=== PATIENT | female | born 1960 | race Caucasian/White ===

== ENCOUNTER → 2017-10-18 13:08 | Outpatient (REF) | payer SELFPAY | LOC: OM 13:08 | PROVIDERS: Visit Provider Nurse Practitioner Family | DX: Z02.83 Encounter for blood-alcohol and blood-drug test (principal) ==

== ENCOUNTER 2020-09-03 11:09 | Outpatient (REF) | payer MEDICAID, SELFPAY ==
--- NOTE | 2020-09-03 10:00 | PAPFT_PTH ---
PATIENT: Erika Armendariz LOC: [facility] U#:[id number] AGE/SX: 60/F ROOM: RE09/03/[address]: HUANG Romano : 1960 BED: DIS: 09/03/2020 SPEC #: [id number] RECD: 09/03/20 12:42 STATUS: ADRIANNE REQ #: [id number] KATHIE: 09/03/20 10:[address]: Cordelia Ya [facility] Cytology RECD BY: Shakira Chavez ENTERED: 09/03/20 12:42 SP TYPE: PAPFT OTHR DR: Danna Reyes Tissues: 1 - CX/ENDOCX FOR PAP SMEARS Procedures: PAP THIN PREP/[facility] Screening HPV DNA PROBE Comments: [id number]
== END 2020-09-03 11:10 | disposition home or self-care (01) ==
LOC: LBN 11:09
PROVIDERS: Visit Provider Nurse Practitioner Family
DX: Z12.4 Encounter for screening for malignant neoplasm of cervix (principal); Z11.51 Encounter for screening for human papillomavirus (HPV)
CPT/HCPCS: 88142; 87624

== ENCOUNTER 2020-09-20 10:08 | Outpatient (REF) | payer MEDICAID, SELFPAY ==
[2020-09-20 15:33] LABS: Abs Immature Grans 0.06 10^3/uL (0.0-0.06); Absolute Basophil Count 0.05 10^3/uL (0.0-0.2); Absolute Lymphocyte Count 2.51 10^3/uL (1.2-3.4); Absolute Monocyte Count 0.55 10^3/uL (0.1-0.8); Absolute Neutrophil Count 3.88 10^3/uL (1.2-6.7); Basophils % 0.7; Eosinophils % 2.8; HCT 41.1 % (36.0-46.0); HGB 13.6 g/dL (11.2-15.7); Immature Grans % 0.8; Lymphocytes % 34.6; MCH 28.9 pg (27.0-33.0); MCHC 33.1 % (32.0-36.0); MCV 87.3 fL (80-95); MPV 11.1 fL (8.0-11.0); Monocytes % 7.6; Neutrophils % 53.5; Nucleated RBC 0 %; Platelet Count 305 10^3/uL (130-400); RBC 4.71 10^6/uL (3.93-5.22); RDW 12.9 % (11.7-14.6); RDW-SD 41.4 fL; WBC 7.25 10^3/uL (4.4-10.8)
[2020-09-20 15:50] LABS: ESR 15 mm/hr (0-30)
[2020-09-20 16:48] LABS: ALT 29 U/L (14-59); AST 15 U/L (15-37); Albumin 4.4 g/dL (3.4-5.0); Alkaline Phosphatase 88 U/L (46-116); Anion Gap 12.1 mmol/L (3-11); BUN 19 mg/dL (7-18); Bilirubin, Total 0.3 mg/dL (0.2-1.0); CO2 24.9 mmol/L (21.0-32.0); CREATININE 0.9 mg/dL (0.55-1.02); Calcium 9.7 mg/dL (8.5-10.1); Calculated LDL 137 mg/dL (<100); Chloride 105 mmol/L (98-107); Cholesterol 219 mg/dL (<200); Glucose 107 mg/dL (74-106); HDL Cholesterol 55 mg/dL (40-60); Potassium 4.4 mmol/L (3.5-5.1); Sodium 142 mmol/L (136-145); TSH (W/Ref FT4) 2.04 uIU/mL (0.36-3.74); Total Protein 7.5 g/dL (6.4-8.2); Triglyceride 137 mg/dL (<150)
[2020-09-20 17:01] LABS: C-Reactive Protein 0.58 mg/dL (0.0-0.3)
[2020-09-20 21:31] LABS: Rheumatoid Factor <8.6 IU/mL (<12.0)
[2020-09-23 15:55] LABS: ANA Interpretation Positive (Negative); ANA Titer Pattern 1:320 Homogeneous
== END 2020-09-20 10:09 | disposition home or self-care (01) ==
LOC: NCHCN 10:08
PROVIDERS: Visit Provider Nurse Practitioner Family
DX: L29.9 Pruritus, unspecified (principal); M25.532 Pain in left wrist; M79.641 Pain in right hand; M79.642 Pain in left hand; G89.29 Other chronic pain; L98.8 Other specified disorders of the skin and subcutaneous tissue; Z87.891 Personal history of nicotine dependence; E66.9 Obesity, unspecified; J30.9 Allergic rhinitis, unspecified
CPT/HCPCS: 80053; 80061; 85652; 84443; 85025; 86038; 86140; 86431

== ENCOUNTER 2020-09-24 02:11 | Outpatient (CLI) | payer MEDICAID, SELFPAY ==
--- NOTE | 2020-09-24 13:20 | DI.MAMMO_ITS ---
Exam(s) MAMMO SCREENING EXAM: MAMMO SCREENING CLINICAL HISTORY: screening,z12.39 TECHNIQUE: Mammograms were interpreted according to the usual protocol including computer analysis w [employer] CAD system, tomosynthesis and C-view imaging. COMPARISON: FINDINGS: The breasts are of moderate density with fairly symmetrical distribution of fibroglandular tissue. N o dominant mass or clumped microcalcification is identified in either breast. No prior examinations are available for comparison. IMPRESSION: No specific evidence of malignancy at this time. Routine screening examinations are suggested at ye xochitl intervals in this age group according to the ACS ACR guidelines. BI-RADS Category 1 - Negative Breast Density - Category B - Scattered areas of fibroglandular density
== END 2020-09-24 02:31 ==
PROVIDERS: PCP Nurse Practitioner Family; Visit Provider Nurse Practitioner Family
DX: Z12.31 Encounter for screening mammogram for malignant neoplasm of breast (principal)
CPT/HCPCS: 77063; 77067

== ENCOUNTER 2020-09-25 21:25 | Outpatient (REF) | payer MEDICAID, SELFPAY ==
[2020-10-01 11:59] LABS: dsDNA Ab, IgG <12.3 IU/mL (<30.0)
[2020-10-01 13:57] LABS: RNP Ab, IgG 2.9 Units (<20.0); Sm (Smith) Ab, IgG 1.9 Units (<20.0)
== END 2020-09-25 21:26 | disposition home or self-care (01) ==
LOC: NCHCN 21:25
PROVIDERS: PCP Nurse Practitioner Family; Visit Provider Nurse Practitioner Family
DX: E78.5 Hyperlipidemia, unspecified (principal)
CPT/HCPCS: 86225; 86235

== ENCOUNTER 2020-09-27 04:43 | Outpatient (CLI) | payer MEDICAID, SELFPAY ==
--- NOTE | 2020-09-27 10:39 | DI.RAD_ITS ---
Exam(s) XR HAND LT COMPLETE EXAM: XR HAND LT COMPLETE CLINICAL HISTORY: LT HAND PAIN, M79.643 TECHNIQUE: COMPARISON: No exams were available for comparison FINDINGS: Three views were obtained. There is marked loss of cartilaginous joint spaces multiple interphalange al joints, with prominent hypertrophic and cystic degenerative changes also present at the DIP joint of the middle finger and the PIP and DIP joints of the little finger. No other significant bony or s oft tissue abnormality seen. IMPRESSION: Degenerative changes as described above. RADIATION DOSE DELIVERED: Total DLP
--- NOTE | 2020-09-27 10:39 | DI.RAD_ITS ---
Exam(s) XR WRIST LT COMPLETE EXAM: XR WRIST LT COMPLETE CLINICAL HISTORY: LT WRIST PAIN, M25.532 TECHNIQUE: COMPARISON: No exams were available for comparison FINDINGS: Three views were obtained. Carpal alignment appears within normal limits except for a moderate ulnar minus variance. There are minimal marginal osteophytes of the greater multangular 1st metacarpal pete int. Cartilaginous joint spaces appear fairly well maintained. IMPRESSION: Slight degenerative changes at greater multangular 1st metacarpal joint. RADIATION DOSE DELIVERED: Total DLP
--- NOTE | 2020-09-27 10:51 | DI.CTLCSR_ITS ---
Exam(s) CT CHEST LUNG CANCER SCREEN EXAM: CT CHEST LUNG CANCER SCREEN CLINICAL HISTORY: SCREENING FOR LUNG CA, FORMER SMOKER, Z87.891 TECHNIQUE: CT examination of the chest was performed utilizing low-dose lung cancer screening protoc ol. COMPARISON: No exams were available for comparison FINDINGS: Images obtained through the upper abdomen show unremarkable appearance of visualized portions of the liver and spleen. There is no mediastinal or hilar adenopathy. Mediastinal vascular structures appear intact by noncon trast criteria. Tracheobronchial tree appears intact. No pleural effusion or pleural-based mass. The lungs are clear with no significant intrapulmonary nodule identified. IMPRESSION: Negative LDCT of the chest.Lung RADS Cat 1 - Negative: No nodules and definitely benign nodules Continue annual screening with LDCT in 12 months. RADIATION DOSE DELIVERED: 94.01mGy.cm Total DLP CTDIvol 94.01mGy.cm Total DLP CTDIvol RADIATION OPTIMIZATION: All CT scans at this facility use at least one of these dose optimization te chniques: automated exposure control; mA and/or kV adjustment per patient size (includes targeted exa ms where dose is matched to clinical indication); or iterative reconstruction.
== END 2020-09-27 05:03 ==
PROVIDERS: PCP Nurse Practitioner Family; Visit Provider Nurse Practitioner Family
DX: Z12.2 Encounter for screening for malignant neoplasm of respiratory organs (principal); M18.12 Unilateral primary osteoarthritis of first carpometacarpal joint, left hand; M19.042 Primary osteoarthritis, left hand; M79.641 Pain in right hand; Z87.891 Personal history of nicotine dependence
CPT/HCPCS: 71271; 73110; 73130

== ENCOUNTER 2020-09-27 07:34 | Outpatient (CLI) | payer MEDICAID, SELFPAY ==
--- NOTE | 2020-09-27 10:39 | DI.RAD_ITS ---
Exam(s) XR LUMBAR SPINE COMPLETE EXAM: XR LUMBAR SPINE COMPLETE CLINICAL HISTORY: LOW BACK PAIN, M54.5 TECHNIQUE: COMPARISON: No exams were available for comparison FINDINGS: Five views were obtained. There is disc space narrowing at L5-S1 and L4-5. Otherwise intervertebral disc spaces appear fairly well maintained. No compression fracture seen. Mild hypertrophic degenerative changes noted involving vertebral endpl ates and facet joints throughout the lumbar spine, with most marked facet involvement in the lower rosalinda mbar region. No evidence of spondylolysis or spondylolisthesis. IMPRESSION: Mild DJD lumbosacral spine. RADIATION DOSE DELIVERED: Total DLP
== END 2020-09-27 07:54 ==
PROVIDERS: PCP Nurse Practitioner Family; Visit Provider Physician Assistant Medical
DX: M47.817 Spondylosis without myelopathy or radiculopathy, lumbosacral region (principal)
CPT/HCPCS: 72110

== ENCOUNTER 2021-03-20 09:05 | Outpatient (REF) | payer MEDICAID, SELFPAY ==
[2021-03-20 22:51] LABS: Hepatitis C Ab w Rflx HCV PCR Negative (Negative)
[2021-03-20 22:56] LABS: HIV-1/2 Ag & Ab Screen Negative (Negative)
== END 2021-03-20 09:06 | disposition home or self-care (01) ==
LOC: NCHCN 09:05
PROVIDERS: PCP Nurse Practitioner Family; Visit Provider Nurse Practitioner Family
DX: Z11.4 Encounter for screening for human immunodeficiency virus [HIV] (principal); Z11.59 Encounter for screening for other viral diseases
CPT/HCPCS: 86803; 87389

== ENCOUNTER 2021-04-16 01:16 | Outpatient (CLI) | payer MEDICAID, SELFPAY ==
[2021-04-16 11:54] LABS: Source Nasal/Nares
[2021-04-16 13:54] LABS: COVID-19 PCR Negative (Negative)
== END 2021-04-16 01:17 | disposition home or self-care (01) ==
LOC: LBO 01:16
PROVIDERS: PCP Nurse Practitioner Family; Visit Provider Surgery
DX: Z20.822 Contact with and (suspected) exposure to COVID-19 (principal)
CPT/HCPCS: 87635

== ENCOUNTER 2021-04-18 13:28 | Day surgery (SDC) | payer MEDICAID, SELFPAY ==
[2021-04-18 13:44] VITALS: BP 134/95; PULSE 77; RESP 18; TEMP 36.9; O2SAT 97
--- NOTE | 2021-04-18 13:54 | W.ANESPRE ---
General Info Date of Service Date Performed: 04/18/21 Height: 5 ft 6 in Weight: 101.6 kg Body Mass Index (BMI): 36.1 Surgical Procedure: Operation Date: 04/18/21 12:50 Proposed Procedure Side Surgeon janell Jensen, Meds Allergies and Home Medications Allergies Allergy/AdvReac Type Severity Reaction Status Date / Time codeine Allergy Mild Verified 04/18/21 13:35 cephalexin Allergy Itching Verified 04/18/21 13:35 Home Medication Medication Instructions Recorded loratadine 10 mg tablet (Claritin) 10 mg PO DAILY 10/14/20 acetaminophen 325 mg capsule 325 mg PO ONCE PRN 03/27/21 (Tylenol) bisacodyl 5 mg tablet,delayed 5 mg PO ONCE #4 tab 03/27/21 release (Dulcolax (bisacodyl)) polyethylene glycol 3350 17 17 g PO ONCE #238 g 03/27/21 gram/dose oral powder Current Visit Medications: Current Medications Generic Name Dose Route Start Last Admin Trade Name Freq PRN Reason Stop Dose Admin Hyoscyamine Sulfate 0.125 mg 04/17/21 22:27 Hyoscyamine 0.125 Mg Sl/Oral/Chew SL DIRECTED PRN Ringer's Solution 1,000 mls @ 80 mls/hr 04/18/21 06:00 IV 05/17/21 23:59 [facility] IV Miscellaneous Supplies 1 each 04/18/21 06:00 Iv Access IV 05/17/21 23:59 DIRECTED LULY Ondansetron HCl 4 mg 04/17/21 22:27 Ondansetron 4 Mg/2 Ml Vial IVP Q4H PRN PRN Nausea / Vomiting Sodium Chloride 0 ml 04/18/21 06:00 Normal Saline Flush 10 Ml Syr IV 05/17/21 23:59 PRN PRN Sodium Chloride 0 ml 04/18/21 06:00 Normal Saline 10 Ml Vial IJ 05/17/21 23:59 DIRECTED PRN Sterile Water 0 ml 04/18/21 06:00 Water,Injection,Sterile 10 Ml Vial IJ 05/17/21 23:59 DIRECTED PRN PFSH Active Problems Active Problems: Problem Status Onset Code Screening for colon cancer Z12.11 Medical History Medical History Allergic rhinitis Bilateral hand pain Chronic foot pain Family history of breast cancer mother Former smoker Headache, migraine Lesion of skin of nose Obesity Pruritus Medical History Comments:: Pt notes she recently learned that her father (90 yr old) takes a while to wake up post procedures. No other concerns noted. Tobacco Smoking/Tobacco Use Status: Former Tobacco Use Alcohol Alcohol Intake: current Alcohol intake frequency: holidays/special occasions only Substance Use Substance use: Never Substance use type: does not use Vital Signs and Lab Results Vital Signs Most Recent Vital Signs in EMR: Most Recent Vital Signs Temp Pulse Resp BP Pulse Ox 36.9 C 77 18 134/95 H 97 04/18/21 13:44 04/18/21 13:44 04/18/21 13:44 04/18/21 13:44 04/18/21 13:44 Lab Results Blood Type / Crossmatch: No Data to Display Complete Blood Count: No Data to Display Complete Metabolic Panel: No Data to Display Liver Function Panel: No Data to Display Coagulation Panel: No Data to Display Cardiac Panel: No Data to Display Arterial Blood Gas: No Data to Display Venous Blood Gas: No Data to Display Pancreas Panel: No Data to Display Thyroid Panel: No Data to Display Infectious Disease: Coronavirus (COVID-19)(PCR) Negative (Negative) 04/16/21 08:40 04/16/21 Coronavirus 2019 Source Nasal/Nares 04/16/21 08:40 04/16/21 HIV (1&2) Ag and Ab, 4th Generation Negative (Negative) 03/20/21 08:29 03/20/21 Hepatitis C Antibody Negative (Negative) 03/20/21 08:29 03/20/21 Blood Cultures: No Data to Display Toxicology Panel: No Data to Display Anesthesia Assessment and Plan Anesthesia History Personal History: No History of Anesthesia Complications Family History: No Family History of Anesthesia Complications Exercise Tolerance Exercise Tolerance: Metabolic Equivalents>4 Pertinent Negatives Pertinent Negatives: No Symptoms of GERD, No Major Cardiovascular Symptoms or Complaints and No Major Pulmonary Symptoms or Complaints Cardiac & Pulmonary Exam Cardiac Exam: Normal S1/S2 Heart Sounds Pulmonary Exam: Clear Bilateral Breath Sounds Implantable Cardiac Device Does patient have a Pacemaker or an ICD?: No Airway Exam Known Difficult Airway: No Mallampati Class: 3 Mouth Opening: Normal (> 3cm) Thyromental Distance: Less than 3 cm Neck Range of Motion: Full ROM Neck Circumference: Normal Teeth Condition: Normal Dentition and Removable Dentures/Plates Upper (Partial) ASA Classification ASA Score: ASA 2 Emergency Case?: No NPO Status NPO Status: NPO Clears >2 hours, Solids >8 hours Anesthesia Plan Resuscitation Status: Full Code Anesthesia Technique: General Anesthesia Airway Planned: Natural Airway Monitors Used: Standard Monitors
[2021-04-18] MEDS: Lactated Ringers 1,000 ML 80 ML IV (14:05)
[2021-04-18 14:11] VITALS: BMI 36.1
--- NOTE | 2021-04-18 14:58 | PDOC.DSDIS_ITS ---
Discharge Plan Disposition Patient Disposition: HOME Condition: Good Discharge Details Reason For Visit: colon scope Attending Provider: Faiza Jensen Primary Care Provider: Melissa Kenny Home Meds and New Rx's Prescriptions: No Action acetaminophen [Tylenol] 325 mg capsule 325 mg PO ONCE PRN0RF bisacodyl [Dulcolax (bisacodyl)] 5 mg tablet,delayed release (DR/EC) 5 mg PO ONCE Qty: 4 0RF Rx Instructions: Take according to provider's instructions for colonoscopy prep. polyethylene glycol 3350 17 gram/dose powder 17 g PO ONCE Qty: 238 0RF Rx Instructions: To be taken as directed by prescriber's office for colonoscopy prep. loratadine [Claritin] 10 mg tablet 10 mg PO DAILY 0RF Discharge Instructions Additional Instructions: DSU Colonoscopy Post- Op Instructions Instructions for Everyone who is given Anesthesia: For your safety, please do the following for the next twenty-four (24) hours: *Do Not operate a motor vehicle (car, truck, motorcycle, etc.) *Do Not drink alcoholic beverages or use any recreational drugs for the first 24 hours or while taking pain medications. The medications in your body may have a reaction that can be dangerous. *Do Not make any important decisions or sign any important papers. Findings: Normal start fiber product daily use Miralax as needed for constipation 1. No lifting over 20 pounds or strenuous activity for the first 24 hours after your procedure. After 24 hours there are no restrictions on your activity but you may feel fatigued for a few days. 2. After you arrive home you may have a light meal and return to your normal diet as you can tolerate it without feeling sick to your stomach. 3. You may have a bloated, gaseous feeling in your belly (abdomen) after a colonoscopy. Passing gas and belching will help. Walking or lying down on your left side with your knees flexed may relieve the discomfort. Call the office at [phone] (Office) or [phone] (Hospital) right away if you notice any of the following: a.Vomiting of blood or ?coffee ground stools?. b.Rectal bleeding 1Tbsp, blood clots or continuous bleeding. c.Severe belly (abdominal) pain. d.A hard distended belly (abdomen) and an inability to pass gas. 4. Please don?t expect to have a normal BM (bowel movement) for 2-3 days after your procedure. 5. If there are questions regarding the findings of your procedure, please contact your doctor 6. If you are unable to contact your doctor with a problem, contact the hospital at [phone]. 7. Continue all your regular medications unless directed otherwise. I understand the above instructions and have no questions. Signature of Patient or Adult Escort Name of Responsible Adult Escort Signature of Nurse Date/Time Activity:: see above Diet:: see above Discharge Orders Discharge Orders: Discharge Order (Routine); Ordered 04/17/21 Ordered By: Faiza Jensen
[2021-04-18 15:01] VITALS: BP 135/67; PULSE 69; RESP 18; TEMP 36.6; O2SAT 97
--- NOTE | 2021-04-18 15:04 | W.COLOREPORT ---
Colonoscopy Report Date of procedure: 04/18/21 Pre-op diagnosis general: CRC screen Surgeon: Faiza Jensen Anesthesia Type: General:No Airway Estimated blood loss (mL): 0 Pathology: none sent Complications: None Disposition: same day Prep: Miralax/Dulcolax Retraction Time: 8 Procedure Description: After informed consent was obtained the patient was taken to the procedure room and placed in a left decubitous position. Monitors were applied and a time out was done. The patients name, date of , procedure, allergies to medications and metal in their body was reviewed. The patient was then sedated. Once sedated and comfortable a rectal exam was done. External exam was normal. Internal exam revealed a normal sphincter tone and no palpable masses. The scope was then introduced and retrofelexed. No internal hemorrhoids were identified. The scope was then advanced to the cecum w/out difficulty. The TI and appendiceal orifice were identified. The prep was a BBPS-2 in amm segments (8). The scope was then slowly retracted over 8 minutes back into the rectum. There are no polyps, AVMs, diverticula visualized today.The mucosa is pink adn healthy. The scope was removed and the patient was woken up and taken back to Same day surgery in stable condition. The patient tolerated the procedure well and there were no immediate complications. Follow up: The patient should follow up in 10 years unless they develop changes in bowel habits or other new gastrointestinal complaints.
--- NOTE | 2021-04-18 15:19 | W.ANESPOSTOP ---
Postoperative Evaluation Date, Time and Location Date Performed: 04/18/21 Time Performed: 15:01 Patient Location: Day Surgery Unit Vital Signs Most Recent Imported Vital Signs: Most Recent Vital Signs Temp Pulse Resp BP Pulse Ox 36.6 C 69 18 135/67 97 04/18/21 15:01 04/18/21 15:01 04/18/21 15:01 04/18/21 15:01 04/18/21 15:01 Pain Score Most Recent Pain Score: Most Recent Pain Score Pain Level 2 04/18/21 15:01 Assessment Mental Status: Awake (Alert & Oriented to Patient Baseline) Airway and Respiratory Function: Patent airway with normal (patient baseline) respiratory exam Cardiovascular Function: Hemodynamically Stable Hydration Status: Adequately Hydrated Nausea & Vomiting: No Nausea or Vomiting Pain: Pt. Denies Any Pain Peripheral Nerve Block: Patient did not receive a nerve block
[2021-04-18 15:42] VITALS: BP 148/67; PULSE 65; RESP 18; TEMP 36.3; O2SAT 100
== END 2021-04-18 16:05 | disposition home or self-care (01) ==
PROVIDERS: PCP Nurse Practitioner Family; Visit Provider Surgery
PROC: 0DJD8ZZ Inspection of Lower Intestinal Tract, Via Natural or Artificial Opening Endoscopic (ICD-10-PCS; CPT 45378; principal; 2021-04-18 12:45)
DX: Z12.11 Encounter for screening for malignant neoplasm of colon (principal)
CPT/HCPCS: 45378; J2001; J2405; J2704

== ENCOUNTER 2021-05-09 00:15 | Outpatient (CLI) | payer MEDICAID, SELFPAY ==
--- NOTE | 2021-05-09 09:30 | DI.MAMMO_ITS ---
Exam(s) MG MAMMO DIAGNOSTIC UNI EXAM: MG MAMMO DIAGNOSTIC UNI CLINICAL HISTORY: LT BREAST PAIN, N64.4 TECHNIQUE: Mammograms were interpreted according to the usual protocol including computer analysis w [employer] CAD system, tomosynthesis and C-view imaging. COMPARISON: FINDINGS: Left breast mammogram was performed. Patient reports pain in the upper outer quadrant/axillary regio n without evidence of a palpable abnormality. No mass or clumped microcalcification seen. No change in appearance of the left breast comparison wi th prior examination of September 2020. IMPRESSION: No specific evidence of malignancy at this time. I would suggest that routine screening examinations resume with a bilateral mammogram in 6 months. BI-RADS Cat 3 - 6 month - Probably Benign Finding: Recommend follow-up imaging in 6 months Breast Density - Category B - Scattered areas of fibroglandular density
== END 2021-05-09 00:35 ==
PROVIDERS: PCP Nurse Practitioner Family; Visit Provider Nurse Practitioner Family
DX: N64.4 Mastodynia (principal)
CPT/HCPCS: 77061; 77065; G0279

== ENCOUNTER 2021-06-06 08:57 | Outpatient (CLI) | payer MEDICAID, SELFPAY ==
--- NOTE | 2021-06-06 08:15 | DI.RAD_ITS ---
Exam(s) XR HAND LT COMPLETE EXAM: XR HAND LT COMPLETE CLINICAL HISTORY: wrist/hand pain. TECHNIQUE: 2D digital imaging was performed of the left hand. Three views were obtained. AP, later al and oblique views were obtained. COMPARISON: CR XR HAND LT COMPLETE from 09/27/2020 FINDINGS: BONES: No acute fracture is present. No bony destructive lesion is seen. JOINTS: No dislocation present. There are stable degenerative changes seen in the left hand. The fin dings are most marked in the 3rd, 4th and 5th fingers. SOFT TISSUE: Normal. IMPRESSION: Stable degenerative changes of the left hand. DATA REPOSITORY: RADIATION DOSE DELIVERED:
== END 2021-06-06 08:58 | disposition home or self-care (01) ==
LOC: DIORS 08:57
PROVIDERS: PCP Nurse Practitioner Family; Referring Provider Nurse Practitioner Family; Visit Provider Physician Assistant
DX: M79.642 Pain in left hand; M19.042 Primary osteoarthritis, left hand
CPT/HCPCS: 73130

== ENCOUNTER → 2022-01-30 00:25 | Outpatient (CLI) | payer MEDICAID, SELFPAY ==
--- NOTE | 2022-01-30 | DI.MAMMO_ITS ---
Exam(s) MAMMO SCREENING EXAM: MAMMO SCREENING CLINICAL HISTORY: SCREENING, Z12.39 TECHNIQUE: Bilateral full field digital CC and MLO mammographic images were obtained with 3D tomosyn thesis and utilizing computer aided detection (CAD). COMPARISON: Available for comparison. FINDINGS: Masses/Architectural Distortion: None seen. Microcalcifications: No suspicious pleomorphic-type are seen. Skin Thickening/Nipple Retraction: None. IMPRESSION: 1. No significant interval change with no specific features of malignancy noted. 2. Unless there is more urgent need, screening mammography is recommended, as per [employer] guidelines. BI-RADS Category 1 - Negative Breast Density - Category B - Scattered areas of fibroglandular density Breast density category C or D implies that the patient has dense breast tissue. Dense breast tissue is very common and is not abnormal but dense breast tissue can make it harder to find cancer on a ma mmogram. Also, dense breast tissue may increase their breast cancer risk. This information about the result of the mammogram report was provided to the patient to raise their awareness. Use this report when you speak with the patient about their risks for breast cancer, which includes their family hist ory. At that time, you may recommend for more screening tests (Ultrasound or MRI) as they might be us eful based on their risk. A negative radiographic report should not delay biopsy if a dominant or clinically suspicious mass is present. Up to ten percent of cancers are not identified on mammography. A negative report may reinforce clinical impression. Adenosis and dense breasts may obscure an underlying neoplasm. False positive reports average 6 to 10%. Patient will receive a letter notifying them of these results.
--- NOTE | 2022-01-30 08:08 | DI.CTLCSR_ITS ---
Exam(s) CT CHEST LUNG CANCER SCREEN EXAM: CT CHEST LUNG CANCER SCREEN CLINICAL HISTORY: FORMER SMOKER, Z87.896 TECHNIQUE: Imaging Protocol: Axial computed tomography images with coronal and sagittal reformatted images were created and reviewed COMPARISON: CT CT CHEST LUNG CANCER SCREEN from 09/27/2020 FINDINGS: Tracheobronchial tree: Patent where visualized. Pulmonary parenchyma: No consolidation or dominant measurable mass. No architectural distortion. Lung Nodules: There does appear to be a 3 mm ground-glass nodule in the superior segment of the left lower lobe. Mediastinum and Jess: No dominant adenopathy or fluid collection. The esophagus is unremarkable. Thyroid gland: Unremarkable. Lymph nodes: Unremarkable. Pleura: No effusion or pneumothorax. Heart: The heart is not dilated. Coronary artery calcification is present. No pericardial effusion. Aorta: Thoracic aorta non-dilated.Atherosclerosis is present. Upper abdomen: Unremarkable. Soft Tissues: Unremarkable. Bones: Within normal limits. IMPRESSION: 3 mm ground-glass nodule in the superior segment of the left lower lobe. Lung RADS Cat 2 - Benign Appearance / Behavior: Nodules with a very low likelihood of becoming a clin ically active cancer due to size or lack of growth Lung-RADS 1.0 CATEGORIES: Category 0 - Prior chest CT exam(s) being located for comparison. Category 1 - Annual screening in 12 months. No nodules or definitely benign nodules. Category 2 - Annual screening in 12 months. Benign appearance. Nodules with low likelihood of becomin g active cancer. Category 3 - 6-month follow-up. Probably benign. Short-term follow-up suggested. Nodules with low lik elihood of becoming active cancer. Category 4A - 3-month follow-up and CT/PET if >8 mm in size. Suspicious finding. Findings which requi re additional testing. Category 4B - Findings which require additional testing and tissue sampling. Suspicious finding. Category 4X - Category 3 or 4 nodules with additional features or imaging findings that increases the suspicion of malignancy. Modifier S- Potentially clinically significant finding. (Non lung cancer) RADIATION DOSE DELIVERED: 86.72mGy.cm Total DLP 2.21mGy!Error CTDIvol 86.72mGy.cmTotal DLP 2.21mGy!Error CTDIvol DATA REPOSITORY: All CT scans at this facility are submitted to the National Radiology Data Registry (NRDR) Dose Index Registry (DIR) with the [employer] (ACR). RADIATION OPTIMIZATION: All CT scans at this facility use at least one of these dose optimization te chniques: automated exposure control; mA and/or kV adjustment per patient size (includes targeted exa ms where dose is matched to clinical indication); or iterative reconstruction.
== END ==
PROVIDERS: PCP Nurse Practitioner Family; Visit Provider Nurse Practitioner Family
DX: Z12.2 Encounter for screening for malignant neoplasm of respiratory organs (principal); Z87.891 Personal history of nicotine dependence; R91.1 Solitary pulmonary nodule; Z12.31 Encounter for screening mammogram for malignant neoplasm of breast
CPT/HCPCS: 71271; 77063; 77067

== ENCOUNTER 2022-08-17 09:45 | Emergency (ER) | payer MEDICAID, SELFPAY ==
[2022-08-17 09:54] VITALS: BP 172/72; PULSE 75; RESP 18; TEMP 36.1; O2SAT 99
--- NOTE | 2022-08-17 10:12 | W.ED.GENAD ---
Discharge Plan Disposition Patient Disposition: Home Condition: Good Discharge Details Clinical Impression: Acute knee pain Primary Care Provider: Melissa Kenny ED Provider: Franklin Zamora Brainard Meds and New Rx's Prescriptions: No Action acetaminophen [Tylenol] 325 mg capsule 325 mg PO ONCE PRN bisacodyl [Dulcolax (bisacodyl)] 5 mg tablet,delayed release (DR/EC) 5 mg PO ONCE Qty: 4 0RF Rx Instructions: Take according to provider's instructions for colonoscopy prep. polyethylene glycol 3350 17 gram/dose powder 17 g PO ONCE Qty: 238 0RF Rx Instructions: To be taken as directed by prescriber's office for colonoscopy prep. loratadine [Claritin] 10 mg tablet 10 mg PO DAILY Discharge Instructions Instructions: Knee Pain (ED) HPI General Date/Time Provider Initiated Documentation: 08/17/22 09:53. History of Present Illness Quality is described as constant, Patient extremity. and it has been constant. HPI Narrative: 62 year old female presents to the ED with c/o R knee pain after walking/hiking up this morning. She says that she tripped on a root, felt like her knee gave out, but says she caught herself before she fell. Her pain is primarily to the posterior lateral aspect, non radiating. She swelling. She was able to bear weight and walk out of the barriga. She says that she has had issues with her knee after injury about 25 years ago, but hasn't more recently. She also says that last week she was having some sciatica, which she thinks contributed to her fall. Related Data Home Medications Medication Instructions Recorded Confirmed loratadine 10 mg tablet (Claritin) 10 mg PO DAILY 10/14/20 06/06/21 acetaminophen 325 mg capsule 325 mg PO ONCE PRN 03/27/21 06/06/21 (Tylenol) bisacodyl 5 mg tablet,delayed 5 mg PO ONCE #4 tabs 03/27/21 06/06/21 release (Dulcolax (bisacodyl)) polyethylene glycol 3350 17 17 g PO ONCE #238 grams 03/27/21 06/06/21 gram/dose oral powder Previous Rx's Medication Instructions Recorded bisacodyl 5 mg tablet,delayed 5 mg PO ONCE #4 tabs 03/27/21 release (Dulcolax (bisacodyl)) polyethylene glycol 3350 17 17 g PO ONCE #238 grams 03/27/21 gram/dose oral powder Allergies Allergy/AdvReac Type Severity Reaction Status Date / Time codeine Allergy Mild Verified 06/06/21 08:07 cephalexin Allergy Itching Verified 06/06/21 08:07 General Stated Complaint: Orthopedic SALLY: 4 Review of Systems Narrative: CONST: no fever or chills EXTR: no swelling +pain NEURO: No focal weakness PFSH All Active Problems (Updated 08/17/22 @ 11:07 by Franklin Zamora MD) Acute knee pain (Acute) Injury of triangular fibrocartilage complex (TFCC) of left wrist (Acute) Normal colonoscopy (Acute ~04/18/21) Screening for colon cancer (Acute) Medical History (Updated 08/17/22 @ 11:07 by Franklin Zamora MD) Allergic rhinitis Bilateral hand pain Chronic foot pain Family history of breast cancer mother Former smoker Headache, migraine Lesion of skin of nose Obesity Pruritus Family History Father Hypertension Diabetes Mother Breast cancer Diabetes Hypertension Social History Smoking/Tobacco Use Status: Former Tobacco Use Quit Date: 02/22/06 Smoking risk assessment performed?: Yes Alcohol Intake: current Alcohol Intake frequency: holidays/special occasions only Drug use: Never Substance use type: does not use Do you feel safe at home: Yes Do you feel safe in your relationship?: Yes Exam Const General: cooperative, healthy appearing and comfortable Extrem Other: R knee normal inspection, pain to R posterior lateral aspect of knee. No tenderness along joint line, no laxity. NVI distally, no effusion or swelling. Course Reevaluation(s) Initial Evaluation: xrays without acute issue, some arthritic changes. Discussed with pt, she tolerates weight bearing and walking pretty well, will have use OTC meds for pain as needed, continue her brace for support, and change to walking on flat surfaces, no hiking this week. Rest/ice. She has orthopedists she follows with in [place], can f/u as needed. She is comfortable with this plan. Vital Signs Vital signs: Vital Signs Temperature 36.1 C L 08/17/22 09:54 Pulse 75 08/17/22 09:54 Respiratory Rate 18 08/17/22 09:54 Blood Pressure 172/72 H 08/17/22 09:54 Pulse Oximetry 99 08/17/22 09:54 Temperature 36.1 C L 08/17/22 09:54 Pulse 75 08/17/22 09:54 Respiratory Rate 18 08/17/22 09:54 Respiratory Effort Normal, Non-Labored 08/17/22 10:02 Blood Pressure 172/72 H 08/17/22 09:54 Blood Pressure Position Sitting 08/17/22 09:54 Pulse Oximetry 99 08/17/22 09:54 Oxygen Delivery Method Room Air 08/17/22 09:54 Oxygen Flow Rate 0 08/17/22 09:54 Pain Level 7 08/17/22 09:54
--- NOTE | 2022-08-17 10:49 | DI.RAD_ITS ---
Exam(s) XR KNEE RT 3V AP,LAT,JUAN EXAM: XR KNEE RT 3V AP,LAT,JUAN CLINICAL HISTORY: injury;pain. TECHNIQUE: 2D digital imaging was performed of the right knee. Three views obtained. AP, lateral an d PA tunnel views were obtained. COMPARISON: No priors for comparison. FINDINGS: BONES: No acute fracture is present. No bony destructive lesion is seen. JOINTS: The knee is normally aligned. There is a tiny joint effusion. Mild degenerative changes are seen in the knee with posterior spurring of the patella. SOFT TISSUE: Atherosclerosis is present. IMPRESSION: No acute fracture or dislocation. DATA REPOSITORY: RADIATION DOSE DELIVERED:
== END 2022-08-17 11:12 | disposition home or self-care (01) ==
PROVIDERS: Emergency Provider Emergency Medicine; PCP Nurse Practitioner Family
DX: M25.561 Pain in right knee (principal); W01.0XXA Fall on same level from slipping, tripping and stumbling without subsequent striking against object, initial encounter
CPT/HCPCS: 73562; 99283

== ENCOUNTER 2023-01-01 15:49 | Outpatient (REF) | payer MEDICAID, SELFPAY ==
[2023-01-01 14:21] LABS: Abs Immature Grans 0.05 10^3/uL (0.0-0.06); Absolute Basophil Count 0.03 10^3/uL (0.0-0.2); Absolute Eosinophil Count 0.09 10^3/uL (0.0-0.7); Absolute Lymphocyte Count 2.32 10^3/uL (1.2-3.4); Absolute Monocyte Count 0.48 10^3/uL (0.1-0.8); Basophils % 0.4; Eosinophils % 1.3; HCT 39.1 % (36.0-46.0); Immature Grans % 0.7; Lymphocytes % 34.3; MCH 29.4 pg (27.0-33.0); MCHC 33.2 % (32.0-36.0); MCV 89 fL (80-95); MPV 10.5 fL (8.0-11.0); Monocytes % 7.1; Neutrophils % 56.2; Platelet Count 309 10^3/uL (130-400); RBC 4.42 10^6/uL (3.93-5.22); RDW 12.6 % (11.7-14.6); RDW-SD 41.5 fL; WBC 6.77 10^3/uL (4.4-10.8)
[2023-01-01 14:35] LABS: ALT 23 U/L (14-59); AST 12 U/L (15-37); Albumin 4.3 g/dL (3.4-5.0); Alkaline Phosphatase 82 U/L (46-116); Anion Gap 10.2 mmol/L (3-11); BUN 20 mg/dL (7-18); Bilirubin, Total 0.3 mg/dL (0.2-1.0); CO2 26.8 mmol/L (21.0-32.0); CREATININE 0.9 mg/dL (0.55-1.02); Chloride 104 mmol/L (98-107); Estimated GFR 72.28 (mL/min/1.73m2); Glucose 125 mg/dL (74-106); Potassium 4.2 mmol/L (3.5-5.1); Sodium 141 mmol/L (136-145); Total Protein 7.1 g/dL (6.4-8.2)
== END 2023-01-01 15:50 | disposition home or self-care (01) ==
LOC: NCHCN 15:49
PROVIDERS: PCP Nurse Practitioner Family; Visit Provider Nurse Practitioner Family
DX: F41.0 Panic disorder [episodic paroxysmal anxiety] (principal); E78.5 Hyperlipidemia, unspecified; E66.8 Other obesity; M13.89 Other specified arthritis, multiple sites; Z87.891 Personal history of nicotine dependence
CPT/HCPCS: 80053; 85025

== ENCOUNTER → 2023-02-02 00:58 | Outpatient (CLI) | payer MEDICAID, SELFPAY ==
--- NOTE | 2023-02-02 | DI.MAMMO_ITS ---
Exam(s) MAMMO SCREENING EXAM: MAMMO SCREENING CLINICAL HISTORY: SCREENING FOR BREAST CANCER Z12.39 TECHNIQUE: Bilateral full field digital CC and MLO mammographic images were obtained with 3D tomosyn thesis and utilizing computer aided detection (CAD). COMPARISON: Available for comparison. FINDINGS: Masses/Architectural Distortion: None seen. Microcalcifications: No suspicious pleomorphic-type are seen. Skin Thickening/Nipple Retraction: None. IMPRESSION: 1. No significant interval change with no specific features of malignancy noted. 2. Unless there is more urgent need, screening mammography is recommended, as per [employer] guidelines. BI-RADS Category 1 - Negative Breast Density - Category B - Scattered areas of fibroglandular density Breast density category C or D implies that the patient has dense breast tissue. Dense breast tissue is very common and is not abnormal but dense breast tissue can make it harder to find cancer on a ma mmogram. Also, dense breast tissue may increase their breast cancer risk. This information about the result of the mammogram report was provided to the patient to raise their awareness. Use this report when you speak with the patient about their risks for breast cancer, which includes their family hist ory. At that time, you may recommend for more screening tests (Ultrasound or MRI) as they might be us eful based on their risk. A negative radiographic report should not delay biopsy if a dominant or clinically suspicious mass is present. Up to ten percent of cancers are not identified on mammography. A negative report may reinforce clinical impression. Adenosis and dense breasts may obscure an underlying neoplasm. False positive reports average 6 to 10%. Patient will receive a letter notifying them of these results.
--- NOTE | 2023-02-02 | DI.CTLCSR_ITS ---
Exam(s) CT CHEST LUNG CANCER SCREEN EXAM: CT CHEST LUNG CANCER SCREEN CLINICAL HISTORY: FORMER SMOKER Z87.891 SCREENING FOR LUNG CANCER TECHNIQUE: Imaging Protocol: Axial computed tomography images with coronal and sagittal reformatted images were created and reviewed COMPARISON: CT CT CHEST LUNG CANCER SCREEN from 01/30/2022 FINDINGS: Tracheobronchial tree: Patent where visualized. Pulmonary parenchyma: No consolidation or dominant measurable mass. No architectural distortion. Lung Nodules: There is a stable 3 mm nodule in the superior segment of the left lower lobe. (Series 6, image 181). Mediastinum and Jess: No dominant adenopathy or fluid collection. The esophagus is unremarkable. Thyroid gland: Unremarkable. Lymph nodes: Unremarkable. Pleura: No effusion or pneumothorax. Heart: The heart is not dilated. Coronary artery calcification is present. No pericardial effusion. Aorta: Thoracic aorta non-dilated.Atherosclerosis. Upper abdomen: Unremarkable. Soft Tissues: Unremarkable. Bones: Within normal limits. IMPRESSION: Stable left lower lobe pulmonary nodule. No new pulmonary nodules. Lung RADS Cat 2 - Benign Appearance / Behavior: Nodules with a very low likelihood of becoming a clin ically active cancer due to size or lack of growth Lung-RADS 1.0 CATEGORIES: Category 0 - Prior chest CT exam(s) being located for comparison. Category 1 - Annual screening in 12 months. No nodules or definitely benign nodules. Category 2 - Annual screening in 12 months. Benign appearance. Nodules with low likelihood of becomin g active cancer. Category 3 - 6-month follow-up. Probably benign. Short-term follow-up suggested. Nodules with low lik elihood of becoming active cancer. Category 4A - 3-month follow-up and CT/PET if >8 mm in size. Suspicious finding. Findings which requi re additional testing. Category 4B - Findings which require additional testing and tissue sampling. Suspicious finding. Category 4X - Category 3 or 4 nodules with additional features or imaging findings that increases the suspicion of malignancy. Modifier S- Potentially clinically significant finding. (Non lung cancer) RADIATION DOSE DELIVERED: Total DLP Total DLP DATA REPOSITORY: All CT scans at this facility are submitted to the National Radiology Data Registry (NRDR) Dose Index Registry (DIR) with the [employer] (A[employer]). RADIATION OPTIMIZATION: All CT scans at this facility use at least one of these dose optimization te chniques: automated exposure control; mA and/or kV adjustment per patient size (includes targeted exa ms where dose is matched to clinical indication); or iterative reconstruction.
== END ==
PROVIDERS: PCP Nurse Practitioner Family; Visit Provider Nurse Practitioner Family
DX: Z12.31 Encounter for screening mammogram for malignant neoplasm of breast (principal); Z12.2 Encounter for screening for malignant neoplasm of respiratory organs; Z87.891 Personal history of nicotine dependence; R91.1 Solitary pulmonary nodule
CPT/HCPCS: 71271; 77063; 77067

== ENCOUNTER 2024-10-13 01:28 | Outpatient (CLI) | payer OTHER, SELFPAY ==
--- NOTE | 2024-10-13 | DI.MAMMO_ITS ---
Exam(s) MAMMO SCREENING EXAM: MAMMO SCREENING CLINICAL HISTORY: SCREENING, Z12.31. TECHNIQUE: Bilateral full field digital CC and MLO mammographic images were obtained with 3D tomosynthesis and utilizing computer aided detection (CAD). COMPARISON: Prior mammograms were reviewed. FINDINGS: There has been no significant change in the appearance and distribution of the fibroglandular tissue. Small benign-appearing nodule medially in the right breast is unchanged prior studies and is most probably a skin mole There are no new spiculated masses nor malignant appearing microcalcification groups. There is no significant architectural distortion nor skin thickening-retraction. IMPRESSION: No radiographic evidence of malignancy. New benign findings BI-RADS Category 2 - Benign Findings Breast Density - Category B - There are scattered areas of fibroglandular density. Breast density Category C or D implies that the patient has dense breast tissue. Dense breast tissue can make it harder to find cancer on a mammogram. Dense breast tissue is also associated with an increased risk of breast cancer. This information about the result of the mammogram report was provided to the patient to raise their awareness. Use this report when you speak with the patient about their risks for breast cancer, which includes their family history. At that time, you may recommend additional screening tests (Ultrasound or MRI) as these tests may add significant information. A negative radiographic report should not delay biopsy if a dominant or clinically suspicious mass is present. Up to ten percent of cancers are not identified on mammography. A negative report may reinforce clinical impression. Adenosis and dense breasts may obscure an underlying neoplasm. False positive reports average 6 to 10%. Patient will receive a letter notifying them of these results.
== END 2024-10-13 01:48 ==
PROVIDERS: PCP Nurse Practitioner Family; Visit Provider Nurse Practitioner Family
DX: Z12.31 Encounter for screening mammogram for malignant neoplasm of breast (principal); R92.323 Mammographic fibroglandular density, bilateral breasts
CPT/HCPCS: 77063; 77067

== ENCOUNTER 2024-11-20 03:32 | Outpatient (CLI) | payer OTHER, SELFPAY ==
--- NOTE | 2024-11-20 | DI.MRI_ITS ---
Exam(s) MR LUMBAR SPINE WO EXAM: MR LUMBAR SPINE WO CLINICAL HISTORY: LOW BACK PAIN M54.50. TECHNIQUE: Multiplanar multisequence MRI of the Lumbar spine was performed. COMPARISON: CR XR LUMBAR SPINE COMPLETE from 09/27/2020 FINDINGS: Conus medullaris is at normal level. There is no evidence of conus mass nor subjacent clumping of intrathecal nerve roots to suggest arachnoiditis. The distal thecal sac appears unremarkable.There is no evidence of Tarlov intrasacral cysts nor other significant findings within the sacral canal Bones:There are no fractures nor ominous osseous lesions in the lumbar vertebral bodies and visualized sacrum. Intraosseous hemangioma are noted in multiple vertebral bodies, the largest being in the right side of the L3 vertebral body. With respect to the individual levels... T12-L1: Unremarkable L1-2: Normal disc height and signal. No disc herniation nor central canal stenosis.No foraminal stenosis L2-3: Normal disc height. No disc herniation nor central canal stenosis.No foraminal stenosis.No facet arthropathy. L3-4: Normal disc height. Mild symmetrical annular bulging. No distinct disc herniation.No central canal stenosis.No significant facet arthropathy and no foraminal stenosis. L4-5: Normal disc height. Mild annular bulging and there is a E focus of signal abnormality in the posterior subligamentous annulus implying an annular tear at this level but there is no distinct disc herniation. There is, however, mild- moderate central spinal canal stenosis at this level. This is due to mild degenerative anterolisthesis of L4 upon L5 related to significant bilateral facet arthropathy. There is no significant foraminal stenosis on either side at this level. L5-S1: Somewhat diminished disc height but preserved disc hydration signal implying that there is an element of sacralization of the L5 segment. There is no disc herniation at this level no central canal stenosis. Minimal degenerative changes in the facet joints. No listhesis at this level. No fora johnathan stenosis at this level. Soft tissues: paraspinal soft tissues appear unremarkable. IMPRESSION: 1. There is mild-moderate central spinal canal stenosis at L4-5 level related to mild degenerative anterolisthesis of L4 upon L5 open (no pars defects). The slippage is related to advanced degenerative changes in both facet joints at this level. Despite the slippage there does not appear to be foraminal stenosis on either side at this level. There is also a tear in the posterior annulus at the L4-5 level. There is no distinct focal disc herniation at this time associated with this posterior sub ligamentous annular tear 2. There appears to be partial sacralization of the L5 segment. This often results in additional stress upon the L4-5 level DATA REPOSITORY:
== END 2024-11-20 03:52 ==
PROVIDERS: PCP Nurse Practitioner Family; Visit Provider Nurse Practitioner Family
DX: M48.061 Spinal stenosis, lumbar region without neurogenic claudication (principal)
CPT/HCPCS: 72148

== ENCOUNTER 2024-12-18 12:56 | Outpatient (CLI) | payer OTHER, SELFPAY ==
--- NOTE | 2024-12-18 12:45 | DI.RAD_ITS ---
Exam(s) XR KNEE LT 4V AP,LAT,JUAN,PAT EXAM: XR KNEE LT 4V AP,LAT,JUAN,PAT CLINICAL HISTORY: M25.562 Pain left knee. TECHNIQUE: 2D digital imaging was performed. COMPARISON: CR XR KNEE RT 3V AP,LAT,JUAN from 08/17/2022 FINDINGS: Four views No evidence of fracture. Small amount of increased joint fluid noted in the suprapatellar bursa. Mild degenerative changes are noted in the medial lateral compartments. Bone density normal. No osseous lesions. No osteochondral defects evident. IMPRESSION: Mild degenerative changes. Small amount of increased joint fluid. DATA REPOSITORY: RADIATION DOSE DELIVERED:
== END 2024-12-18 13:16 ==
LOC: DI 13:01
PROVIDERS: PCP Nurse Practitioner Family; Visit Provider Anesthesiology Pain Medicine
DX: M25.562 Pain in left knee (principal)
CPT/HCPCS: 73564

== ENCOUNTER 2025-01-03 14:10 | Outpatient (CLI) | payer OTHER, SELFPAY ==
--- NOTE | 2025-01-03 06:00 | DI.RAD_ITS ---
Exam(s) XR PAIN CLINIC SACRIOILIAC 2V EXAM: XR PAIN CLINIC SACRIOILIAC 2V CLINICAL HISTORY: DX: Sacroiliac Dysfunction. TECHNIQUE: Fluoroscopy was provided for the referring physician for guidance with performing pain clinic injection procedure. COMPARISON: No exams were available for comparison FINDINGS: Please see procedure note for details. Fluoro time: 21.3 seconds RADIATION DOSE DELIVERED: Ka,r=8.3 mGy
[2025-01-03 14:26] VITALS: BP 141/69; PULSE 66; RESP 16; TEMP 36.1; O2SAT 97
--- NOTE | 2025-01-03 14:34 | PDOC.PAIN ---
Date of service: 01/03/25 Time of Service: 15:15 Pain Managment Procedure Note Procedure Note Procedure Note: ?Sacroiliac Joint Steroid Injection ? Location: ? ? Left SI joint ? Pre-procedure Diagnosis: Sacroiliitis, not elsewhere classified - M46.1 ? Post-procedure Diagnosis:? The same as above ? Sedation:? NONE ? Medication: Depo-Medrol 40 mg, bupivacaine 0.5% 1 mL, Omnipaque 0.25 mL per joint ? Estimated blood loss:? less than 2 cc ? Surgeon:? Joe Mathews MD ? COMMENT: THIS WILL BE BOTH DIAGNOSTIC AND THERAPEUTIC ? Procedure Detail:? The procedure and potential risks were explained to the patient and informed written consent was obtained. The patient was escorted to the procedure room and placed in the prone position. Pillows were utilized for proper positioning and comfort. Time out was performed in the procedure room with nursing staff confirming the patient's identity, procedure to be performed, allergies, and any blood thinning or anti-platelet medications. The patient's lumbosacral area was prepped with ChloraPrep and draped in a sterile fashion. Sterile technique was maintained throughout the procedure.? Sterile gloves were used, a face mask was worn, and new single dose vials of all medications were used with the top being swabbed with alcohol and given time to dry prior to withdrawal of medication. Lidocaine 1% was used to anesthetize the skin. With fluoroscopic guidance, a 22-gauge 3.5 spinal needle was advanced into the posteroinferior aspect of the Left SI joint . Confirmation of intra-articular position of the needle tip was obtained with injection of 0.25cc of Omnipaque 240 contrast which showed appropriate spread within the joint.? Following negative aspiration, 40mg of methylprednisolone mixed with 1 mL of bupivacaine 0.5% was injected.? The needle was gently removed. ?The patient tolerated the procedure well and was discharged home with instructions.? Permanent images saved and recorded. Plan:? Follow up prn. PAIN PRE PROCEDURE 06/01 POST PROCEDURE 05/01 COMMENT: 20 % BETTER AFTER INJECTION. Patient also has facet arthropathy and some left knee arthritis. Would consider medial branch blocks and orthopedic evaluation. MRI 11/20/24- 1. There is mild-moderate central spinal canal stenosis at L4-5 level related to mild degenerative anterolisthesis of L4 upon L5 open (no pars defects). The slippage is related to advanced degenerative changes in both facet joints at this level. Despite the slippage there does not appear to be foraminal stenosis on either side at this level. There is also a tear in the posterior annulus at the L4-5 level. There is no distinct focal disc herniation at this time associated with this posterior sub ligamentous annular tear 2. There appears to be partial sacralization of the L5 segment. This often results in additional stress upon the L4-5 level Coding Conscious Sedation used for procedure: No CPT Codes: SI Joint Inj; incl Fluoro - 14885 ([id number] ~G) Additional Codes: Date of Service (31611) Diagnoses: Sacroiliitis, not elsewhere classified - M46.1
[2025-01-03 14:56] VITALS: O2SAT 96
[2025-01-03 15:10] VITALS: O2SAT 98
[2025-01-03] MEDS: Omnipaque 240 MG/ML 50 ML BTL IJ (15:14)
[2025-01-03] MEDS: Nerve Block Tray 1 EACH MC (15:14)
[2025-01-03] MEDS: Bupivacaine 0.5% Pres-Free 10 ML VIAL IJ (15:15)
[2025-01-03] MEDS: methylPREDNISolone ACETATE 80 MG/ML VIAL IJ (15:15)
== END 2025-01-03 14:11 | disposition home or self-care (01) ==
LOC: PC 14:10
PROVIDERS: PCP Nurse Practitioner Family; Visit Provider Anesthesiology Pain Medicine
DX: M46.1 Sacroiliitis, not elsewhere classified (principal)
CPT/HCPCS: 27096; 72200; J0665; J1010; Q9967

== ENCOUNTER → 2025-01-22 10:39 | Outpatient (CLI) | payer MEDICARE, SELFPAY ==
--- NOTE | 2025-01-22 | DI.MRI_ITS ---
Exam(s) MR LOWER JOINT LT WO EXAM: MR LOWER JOINT LT WO CLINICAL HISTORY: LT KNEE PAIN, M25.562 TECHNIQUE: Multiplanar multisequence MRI of the knee was performed. COMPARISON: CR XR KNEE LT 4V AP,LAT,JUAN,PAT from 12/18/2024 FINDINGS: EFFUSION: A small amount of increased joint fluid. No large joint effusion evident. No obvious loose intra-articular bodies evident. There is no significant paredes cyst in the medial popliteal fossa. MARROW:There is no evidence of fracture, bone contusion, nor osteochondral defects.. There are no significant osseous lesions. PATELLOFEMORAL COMPARTMENT: The quadriceps tendon exhibits some increased intrasubstance signal in the distal vastus medialis aspect consistent with element of mild injury signal at this level. There is no high-grade quadriceps tear. The patellar ligament is intact. There is significant thinning of the retropatellar cartilage over the medial facet. There is very mild subarticular intraosseous findings in the posterior patella at this level. No formed osteochondral defect. There is no intraosseous signal in the patella to suggest recent patellar dislocation. CRUCIATE LIGAMENTS: There is increased signal and indistinctness of the more posterior of the 2 fascicles of the ACL as seen on the sagittal images. However, on the coronal oblique images the ACL appears unremarkable. Therefore doubtful for significant ACL injury. The posterior cruciate ligament is intact. MEDIAL COMPARTMENT/MEDIAL MENISCUS: There is some myxoid degeneration signal in the posterior horn of the medial meniscus but there are no through tears of the medial meniscus evident.. There are no chondral defects, osteochondral defects, subarticular marrow edema, nor osteophytes evident. MEDIAL COLLATERAL LIGAMENT: Intact LATERAL COMPARTMENT/LATERAL MENISCUS: There is normally horizontal tear in the anterior horn of the lateral meniscus. Adjacent fluid signal may be consistent with developing degenerative meniscal cyst at this level. There is some myxoid degeneration signal in the posterior horn of the lateral meniscus. There is some articular cartilage thinning over the main weight-bearing surface of the lateral femoral condyle. There is no subarticular edema. No osteochondral defects. No abnormal signal in the tibial plateau. ILIOTIBIAL BAND: There is signal abnormality in the soft tissues just medial to the iliotibial band. No high-grade tear evident. LATERAL COLLATERAL LIGAMENT COMPLEX: There is some increased signal adjacent to the styloid attachment of the fibular collateral ligament. There is no high- grade tear of this structure. The biceps femora is tendon component appears intact.Popliteus muscle and tendon are intact. IMPRESSION: 1. There is a tear in the anterior horn of the lateral meniscus as described above. There is mild articular cartilage loss over the main weight-bearing surface of the lateral femoral condyle. There is no subarticular edema in the lateral condyle nor in the subjacent tibial plateau. 2. Some increased fluid signal noted medial to the iliotibial band and adjacent to the fibular styloid attachment of the fibular collateral ligament, but no high-grade tear of these lateral capsular structures. 3. There is some signal abnormality in the medial aspect of the distal quadriceps tendon, consistent with some tendinitis signal at this level. Cannot exclude area of small partial tearing in this structure. This is best seen on the axial fat sat images (series [id number]). 4. There is advanced thinning of the retropatellar cartilage over the medial facet of the patella. No distinct osteochondral defect. There is relative preservation of the retropatellar cartilage over the lateral facet. Small amount of increased joint fluid noted. DATA REPOSITORY:
== END ==
PROVIDERS: PCP Nurse Practitioner Family; Visit Provider Nurse Practitioner Family
DX: M23.242 Derangement of anterior horn of lateral meniscus due to old tear or injury, left knee (principal); M25.562 Pain in left knee
CPT/HCPCS: 73721